=== PATIENT | male | born 1965 | race Caucasian/White ===

== ENCOUNTER 2017-03-16 08:14 | Inpatient (IN) | payer MEDICARE, MEDICAID ==
[2017-03-13 11:11] VITALS: BMI 35.2
[2017-03-16 10:51] LABS: Hemoglobin 14.1 g/dL (14.0-18.0); Mean Corpuscular HGB CONC 33.7 g/dL (32.0-36.0); Mean Corpuscular Hemoglobin 32.4 pg (27.0-31.0); Mean Platelet Volume 8.6 fL (7.4-10.4); Platelet Count 237 thou/uL (130-400); RBC Distribution Width 11.5 % (11.5-14.5); Red Blood Cell (RBC) Count 4.37 mill/uL (4.70-6.10); White Blood Cell (WBC) Count 10.2 thou/uL (4.8-10.8)
[2017-03-16 11:10] LABS: Anion Gap 12 mmol/L (10-20); BUN (Urea Nitrogen) 14 mg/dL (8.4-25.7); Calc. Creatinine Clearance 184 mL/min (70-130); Calcium 9.4 mg/dL (7.8-10.44); Carbon Dioxide 25 mmol/L (22-29); Chloride 108 mmol/L (98-107); Estimated GFR-MDRD Greater than 90; Glucose 93 mg/dL (70-105); Potassium 3.9 mmol/L (3.5-5.1); Sodium 141 mmol/L (136-145)
[2017-03-16] MEDS ORDERED: Levofloxacin 500 mg/D5W 100 ml Premix Bag ONE (11:11)
[2017-03-16] MEDS ORDERED: Clindamycin/D5W 900 mg/50 ml Premix Bag ONE (11:12)
[2017-03-16] MEDS ORDERED: Sodium Chloride 0.9% 0 ML ONE (11:17)
[2017-03-16] MEDS ORDERED: Bacitracin Zinc Ointment 30 gm TUBE ONE ×2 (11:17→11:19)
[2017-03-16] MEDS ORDERED: Thrombin 5000 UNITS/5 ML VIAL ONE (11:17)
[2017-03-16] MEDS ORDERED: Fentanyl 250 MCG/5 ML VIAL ONE (11:19)
[2017-03-16] MEDS ORDERED: Sodium Chloride 0.9% 10 ML ONE (12:37)
[2017-03-16] MEDS ORDERED: ePHEDrine/0.9% NaCl/PF SYRINGE 50 mg/10 ml ONE (13:44)
[2017-03-16] MEDS ORDERED: PHENYLEPHRINE-NS 100 MCG/ML 10 ML SYRINGE ONE (13:44)
[2017-03-16] MEDS ORDERED: Propofol 200 MG/20 ML VIAL ONE (13:44)
[2017-03-16] MEDS ORDERED: Lidocaine 1% PF 5 ML VIAL ONE (13:44)
[2017-03-16] MEDS ORDERED: Glycopyrrolate 0.2 MG/ML 5 ML SYRINGE ONE (13:44)
[2017-03-16] MEDS ORDERED: Dexamethasone 20 MG/5 ML VIAL ONE (13:44)
--- NOTE | 2017-03-16 14:04 | OP ---
DATE OF PROCEDURE: 03/16/2017 SURGEON: Will Infante M.D. TECHNICAL SERVICES ASSISTANT: Taylor Patricia PROCEDURES: Exploration of spinal fusion C5-C7, attempted removal of hardware C6-7, attempted interb luis daniel arthrodesis C5-6. Cervical laminectomy, C5-6 posterolateral arthrodesis, lateral mass screw instrumentation, deminerali zed bone matrix, and local morselized autograft C5-6. PROCEDURE IN DETAIL: The patient was brought into the operating room and intubated. He was position ed supine with the head in modest extension on a gel-filled donut. The previous incision was reopene d and the prior hardware was identified. We attempted to remove the C6-7 plate and removed it to C6 screws with some difficulty, but the C7 screws were impossible to remove. The right C7 screw head wa s completely debrided in multiple fragments, but the left C7 head could not be removed at all and ult imately we had to abort efforts to remove the C6-7 plate. Fusion surrounding C6-7 did seem to be bhumika id. At C5-6, we identified the anterior interbody arthrodesis. We made extensive efforts to expose enough C6 vertebral body to attempt anterior plating, but ultimately this was unsuccessful. The woun d was then extensively irrigated, immaculate hemostasis was secured, and the wound was closed in sarah omic layers over a drain. Next, the patient was rolled into the prone position on gel-filled chest r olls with the head fixed in neutral position in the abida truck loader overhead crane. The C5-6 region was exposed bilaterally and our level confirmed by x-ray. We performed a modest C5-6 interlaminar laminectomy fo r the purpose of decompression. We next placed lateral mass screws at C5 and C6 bilaterally using la terloretta fluoroscopic guidance. A alejandra was secured between the screws, connected by nuts were final tigh tened. The wound was then extensively irrigated, immaculate hemostasis was secured. A combination o f demineralized bone matrix and local morselized autograft was laid over the laminar and posterolater al surfaces for the purpose of arthrodesis. Vancomycin powder was applied and the wound was then darlene sed in anatomic layers.
[2017-03-16] MEDS ORDERED: Promethazine HCl 25 MG/ML VIAL IM PRN ×2 (14:18→15:49)
[2017-03-16] MEDS ORDERED: Promethazine HCl 25 MG/ML VIAL SLOW IVP PRN (14:18)
[2017-03-16] MEDS ORDERED: Ondansetron HCl/PF 4 MG/2 ML Vial IVP PRN ×2 (14:18→15:49)
[2017-03-16] MEDS ORDERED: Meperidine HCl/PF 25 MG/ML VIAL SLOW IVP PRN (14:18)
[2017-03-16] MEDS ORDERED: Meperidine HCl/PF 25 MG/ML VIAL ONE (14:20)
[2017-03-16] MEDS ORDERED: Fentanyl 100 MCG/2 ML VIAL ONE ×3 (14:25→15:18)
[2017-03-16] MEDS ORDERED: Milk Of Magnesia 30 ML UDCUP PO PRN (15:49)
[2017-03-16] MEDS ORDERED: traMADol HCl 50 MG TAB PO PRN ×2 (15:49)
[2017-03-16] MEDS ORDERED: diphenhydrAMINE 25 MG CAP PO PRN (15:49)
[2017-03-16] MEDS ORDERED: Promethazine HCl 12.5 MG SUPP PR PRN (15:49)
[2017-03-16] MEDS ORDERED: Mag-Al 1200 mg/1200 mg/30 ML UDCUP PO PRN (15:49)
[2017-03-16] MEDS ORDERED: HYDROcodone/Acetaminophen 10/325 mg Tablet PO PRN (15:49)
[2017-03-16] MEDS ORDERED: diphenhydrAMINE 50 MG/ML VIAL IVP PRN (15:49)
[2017-03-16] MEDS ORDERED: Promethazine 25 MG TAB PO PRN (15:49)
[2017-03-16] MEDS ORDERED: LEVALBUTEROL TARTRATE INH PRN (16:07)
[2017-03-16] MEDS ORDERED: Nitroglycerin 0.4 MG TAB (25 Tab Bottle) SL PRN (16:08)
[2017-03-16] MEDS: HYDROcodone/Acetaminophen 10/325 mg Tablet PO PRN ×2 (17:45→23:39)
[2017-03-16] MEDS: metFORMIN 500 MG TAB PO SCH (17:48)
[2017-03-16] MEDS: Sodium Chloride 0.9% 1,000 ML IV SCH (17:51)
--- NOTE | 2017-03-16 17:53 | EKG ---
Test Reason : PREOP Blood Pressure : / mmHG Vent. Rate : 067 BPM Atrial Rate : 067 BPM P-R Int : 160 ms QRS Dur : 096 ms QT Int : 396 ms P-R-T Axes : 062 042 041 degrees QTc Int : 418 ms Normal sinus rhythm Normal ECG No previous ECGs available Confirmed by ERIKA HOLLIS, DR. Marcum ([id number]) on 03/16/2017 5:53:01 PM Referred By: DEBORAH Confirmed By:DR. Jossue JAMES MD
[2017-03-16] MEDS: Mometasone/Formoterol 120 PUFF INHALER INH SCH (19:28)
[2017-03-16] MEDS: tiZANidine HCl 4 MG TAB PO PRN (21:09)
[2017-03-16] MEDS: Clindamycin/D5W 900 MG in Premix Bag 1 BAG IVPB SCH (21:09)
--- NOTE | 2017-03-16 21:46 | PDOC.PN ---
- Subjective Encounter Start Date: 03/16/17 Encounter Start Time: 21:40 Subjective: Consult for med mgmt. Hx of HTN, DM, COPD, CAD. Reviewed all hx, labs -: radiographs and EKG. s/p cervical diskectomy with hardware removal. - Objective Resuscitation Status: Resuscitation Status FULL:Full Resuscitation MAR Reviewed: Yes Vital Signs & Weight: Vital Signs (12 hours) Temp Pulse Resp BP Pulse Ox 03/16/17 19:28 95 18 95 03/16/17 18:25 97.9 F 98 18 95 03/16/17 16:39 97.9 F 98 18 124/82 95 Weight Weight 245 lb I&O: 03/15/17 03/16/17 03/17/17 06:59 06:59 06:59 Intake Total 500 Output Total 0 Balance 500 Result Diagrams: 03/16/17 10:35 03/16/17 10:35 EKG Reviewed by me: Yes (NSR in 60's, no acute ST-T wave changes) Phys Exam - Physical Examination Constitutional: NAD HEENT: PERRLA, oral pharynx no lesions Neck: no JVD, supple Respiratory: no wheezing, clear to auscultation bilateral Cardiovascular: RRR Gastrointestinal: soft, non-tender, no distention, positive bowel sounds Musculoskeletal: no edema, pulses present Neurological: normal sensation, moves all 4 limbs Psychiatric: A&O x 3 Skin: normal turgor, cap refill <2 seconds Dx/Plan (1) HTN (hypertension) Code(s): I10 - ESSENTIAL (PRIMARY) HYPERTENSION Status: Chronic Qualifiers: Hypertension type: essential hypertension Qualified Code(s): I10 - Essential (primary) hypertension Comment: Continue Norvasc 10mg daily and Losartan 100mg daily (2) DM II (diabetes mellitus, type II), controlled Code(s): E11.9 - TYPE 2 DIABETES MELLITUS WITHOUT COMPLICATIONS Status: Chronic Comment: Continue Metformin 500mg BID, add ISS for reflexive coverage , accuchecks ACHS (3) COPD (chronic obstructive pulmonary disease) Status: Chronic Comment: No exacerbation, continue Advair and Xopenex (4) CAD (coronary artery disease) Code(s): I25.10 - ATHSCL HEART DISEASE OF [place] CORONARY ARTERY W/O ANG PCTRS Status: Chronic Comment: Stable, continue ASA, Lipitor (5) Status post cervical discectomy Code(s): Z98.890 - OTHER SPECIFIED POSTPROCEDURAL STATES Status: Acute Comment: Mgmt per primary service - Plan continue antibiotics, PT/OT, DVT proph w/SCDs Stable currently -: Continue ASA and Lipitor -: Continue Norvasc and Losartan -: Pain control as indicated -: PT for mobilization * Thank you for the consult. Will continue to follow with primary service.
[2017-03-16] MEDS ORDERED: Dextrose 50% Abboject 50 ML SYRINGE SLOW IVP PRN (21:47)
[2017-03-16] MEDS ORDERED: HumaLOG 300 UNITS/3 ML VIAL SC PRN ×2 (21:47)
[2017-03-16] MEDS ORDERED: Dextrose 5% in Water 1,000 ML IV PRN (21:47)
[2017-03-17] MEDS: HYDROcodone/Acetaminophen 10/325 mg Tablet PO PRN ×5 (04:45→21:47)
[2017-03-17] MEDS: tiZANidine HCl 4 MG TAB PO PRN ×3 (04:46→17:43)
[2017-03-17] MEDS: Clindamycin/D5W 900 MG in Premix Bag 1 BAG IVPB SCH ×3 (04:47→21:46)
[2017-03-17] MEDS: Morphine 4 MG/ML Carpuject SLOW IVP PRN ×4 (06:27→21:48)
[2017-03-17] MEDS: Sodium Chloride 0.9% 1,000 ML IV SCH ×2 (07:09→18:21)
[2017-03-17] MEDS ORDERED: POTASSIUM 99MG PO SCH (08:00)
[2017-03-17] MEDS: Mometasone/Formoterol 120 PUFF INHALER INH SCH ×2 (08:11→19:16)
[2017-03-17] MEDS: Losartan 25 MG TAB PO SCH (08:31)
[2017-03-17] MEDS: Multivit, Therapeutic 1 TAB PO SCH (08:31)
[2017-03-17] MEDS: metFORMIN 500 MG TAB PO SCH ×2 (08:32→17:49)
[2017-03-17] MEDS: Amlodipine 10 MG TAB PO SCH (08:32)
[2017-03-17] MEDS: Atorvastatin Calcium 40 MG TAB PO SCH (08:32)
[2017-03-17] MEDS ORDERED: Dexamethasone 4 mg/ml Vial SLOW IVP SCH (15:15)
[2017-03-17] MEDS ORDERED: Dexamethasone 10 MG/ML VIAL SLOW IVP SCH (15:15)
--- NOTE | 2017-03-17 16:27 | PDOC.PN ---
- Subjective Encounter Start Date: 03/17/17 Encounter Start Time: 16:26 Patient seen and examined. No new complaints. No overnight events - Objective Resuscitation Status: Resuscitation Status FULL:Full Resuscitation MAR Reviewed: Yes Vital Signs & Weight: Vital Signs (12 hours) Temp Pulse Resp BP BP Pulse Ox Pulse Ox 03/17/17 11:50 98.0 F 83 16 105/67 94 L 03/17/17 11:14 94 L 03/17/17 08:32 91 130/69 03/17/17 08:11 91 16 97 03/17/17 07:50 97.8 F 80 16 130/69 93 L 03/17/17 04:41 98.3 F 83 20 133/81 93 L Pulse Ox 03/17/17 11:50 03/17/17 11:14 92 L 03/17/17 08:32 03/17/17 08:11 03/17/17 07:50 03/17/17 04:41 Weight Weight 245 lb I&O: 03/16/17 03/17/17 03/18/17 06:59 06:59 06:59 Intake Total 500 900 Output Total 0 800 Balance 500 100 Result Diagrams: 03/16/17 10:35 03/16/17 10:35 Additional Labs: Accuchecks 03/17/17 03/17/17 03/17/17 15:59 11:56 06:30 POC Glucose 110 104 110 03/16/17 23:34 POC Glucose 162 H Phys Exam - Physical Examination Constitutional: NAD HEENT: PERRLA Neck: no nodes Respiratory: no rales Cardiovascular: no significant murmur Gastrointestinal: non-tender Musculoskeletal: pulses present Neurological: normal sensation Psychiatric: A&O x 3 Dx/Plan (1) Status post cervical discectomy Code(s): Z98.890 - OTHER SPECIFIED POSTPROCEDURAL STATES Status: Acute Comment: Mgmt per primary service (2) CAD (coronary artery disease) Code(s): I25.10 - ATHSCL HEART DISEASE OF [place] CORONARY ARTERY W/O ANG PCTRS Status: Chronic Comment: Stable, continue ASA, Lipitor (3) COPD (chronic obstructive pulmonary disease) Status: Chronic Comment: No exacerbation, continue Advair and Xopenex (4) DM II (diabetes mellitus, type II), controlled Code(s): E11.9 - TYPE 2 DIABETES MELLITUS WITHOUT COMPLICATIONS Status: Chronic Comment: Continue Metformin 500mg BID, add ISS for reflexive coverage , accuchecks ACHS (5) HTN (hypertension) Code(s): I10 - ESSENTIAL (PRIMARY) HYPERTENSION Status: Chronic Qualifiers: Hypertension type: essential hypertension Qualified Code(s): I10 - Essential (primary) hypertension Comment: Continue Norvasc 10mg daily and Losartan 100mg daily - Plan continue antibiotics, PT/OT, DVT proph w/SCDs Stable currently -: Continue ASA and Lipitor -: Continue Norvasc and Losartan -: Pain control as indicated -: PT for mobilization
[2017-03-18] MEDS: tiZANidine HCl 4 MG TAB PO PRN ×2 (01:10→09:15)
[2017-03-18] MEDS: HYDROcodone/Acetaminophen 10/325 mg Tablet PO PRN ×3 (02:04→13:13)
[2017-03-18] MEDS: Clindamycin/D5W 900 MG in Premix Bag 1 BAG IVPB SCH ×2 (04:56→11:28)
[2017-03-18] MEDS: Mometasone/Formoterol 120 PUFF INHALER INH SCH (06:59)
[2017-03-18] MEDS: Sodium Chloride 0.9% 1,000 ML IV SCH (08:40)
[2017-03-18] MEDS: Amlodipine 10 MG TAB PO SCH (09:10)
[2017-03-18] MEDS: Losartan 25 MG TAB PO SCH (09:10)
[2017-03-18] MEDS: Multivit, Therapeutic 1 TAB PO SCH (09:10)
[2017-03-18] MEDS: metFORMIN 500 MG TAB PO SCH (09:10)
[2017-03-18] MEDS: Atorvastatin Calcium 40 MG TAB PO SCH (09:10)
[2017-03-18 09:41] LABS: Troponin I Less than 0.010 ng/mL (< 0.028)
[2017-03-18 12:20] VITALS: BP 113/68; TEMP 97.9
--- NOTE | 2017-03-18 13:09 | PDOC.PN ---
- Subjective Encounter Start Date: 03/18/17 Encounter Start Time: 11:00 Pt had an episode of CP, achiness earlier associated with a surgicla pain flare. Biomarker snad EKG unchanged. Pt cleared for discharge by Neurosurg. No F/C,no N/V/d/C, no SOB, no diaphoresis. 10 point ROS performed and neg for all systems except as per hPI - Objective Resuscitation Status: Resuscitation Status FULL:Full Resuscitation MAR Reviewed: Yes Vital Signs & Weight: Vital Signs (12 hours) Temp Pulse Resp BP Pulse Ox 03/18/17 11:00 97.9 F 79 14 113/68 03/18/17 08:00 98 F 83 14 03/18/17 07:22 98 F 83 14 119/73 96 03/18/17 04:00 98.2 F 73 20 114/65 97 Weight Weight 245 lb I&O: 03/17/17 03/18/17 03/19/17 06:59 06:59 06:59 Intake Total 500 5220 Output Total 0 2000 Balance 500 3220 Result Diagrams: 03/16/17 10:35 03/16/17 10:35 Additional Labs: Accuchecks 03/18/17 03/18/17 03/17/17 11:02 06:07 20:57 POC Glucose 116 H 132 H 138 H 03/17/17 15:59 POC Glucose 110 Radiology Reviewed by me: Yes EKG Reviewed by me: Yes Phys Exam - Physical Examination Constitutional: NAD HEENT: PERRLA, moist MMs, sclera anicteric, oral pharynx no lesions Neck: no nodes, no JVD, supple, full ROM dressing C/D/I, no bleedthrough Respiratory: no wheezing, no rales, no rhonchi, clear to auscultation bilateral Cardiovascular: RRR, no significant murmur, no rub Gastrointestinal: soft, non-tender Musculoskeletal: no edema, pulses present Neurological: non-focal, normal sensation, moves all 4 limbs Lymphatic: no nodes Psychiatric: normal affect, A&O x 3 Skin: no rash, normal turgor, cap refill <2 seconds Dx/Plan (1) Status post cervical discectomy Code(s): Z98.890 - OTHER SPECIFIED POSTPROCEDURAL STATES Status: Acute Comment: Mgmt per primary service (2) CAD (coronary artery disease) Code(s): I25.10 - ATHSCL HEART DISEASE OF [place] CORONARY ARTERY W/O ANG PCTRS Status: Chronic Comment: Stable, continue ASA, Lipitor (3) COPD (chronic obstructive pulmonary disease) Status: Chronic Comment: No exacerbation, continue Advair and Xopenex (4) DM II (diabetes mellitus, type II), controlled Code(s): E11.9 - TYPE 2 DIABETES MELLITUS WITHOUT COMPLICATIONS Status: Chronic Comment: Continue Metformin 500mg BID, add ISS for reflexive coverage , accuchecks ACHS (5) HTN (hypertension) Code(s): I10 - ESSENTIAL (PRIMARY) HYPERTENSION Status: Chronic Qualifiers: Hypertension type: essential hypertension Qualified Code(s): I10 - Essential (primary) hypertension Comment: Continue Norvasc 10mg daily and Losartan 100mg daily - Plan * . Ok to discharge, will sign off in anticipation of discharge
--- NOTE | 2017-03-19 00:53 | EKG ---
Test Reason : C/O CHEST PAIN Blood Pressure : / mmHG Vent. Rate : 080 BPM Atrial Rate : 080 BPM P-R Int : 152 ms QRS Dur : 096 ms QT Int : 354 ms P-R-T Axes : 053 027 023 degrees QTc Int : 408 ms Normal sinus rhythm Normal ECG When compared with ECG of 16-MAR-2017 10:41, No significant change was found Confirmed by ERIKA HOLLIS, DR. Marcum ([id number]) on 03/19/2017 12:53:08 AM Referred By: MEME Confirmed By:DR. Jossue JAMES MD
== END 2017-03-18 13:39 | disposition home or self-care (01) | DRG 473 ==
LOC: SURG A 08:14
PROVIDERS: ADMIT Neurological Surgery; ATTEND Neurological Surgery
PROC: 0RG1071 Fusion of Cervical Vertebral Joint with Autologous Tissue Substitute, Posterior Approach, Posterior Column, Open Approach (ICD-10-PCS; principal; 2017-03-16)
PROC: 00NW0ZZ Release Cervical Spinal Cord, Open Approach (ICD-10-PCS; 2017-03-16)
DX: M48.02 Spinal stenosis, cervical region (principal); E11.9 Type 2 diabetes mellitus without complications; M54.12 Radiculopathy, cervical region; I25.10 Atherosclerotic heart disease of native coronary artery without angina pectoris; J44.9 Chronic obstructive pulmonary disease, unspecified; I10 Essential (primary) hypertension; E78.5 Hyperlipidemia, unspecified; Z88.0 Allergy status to penicillin; Z88.8 Allergy status to other drugs, medicaments and biological substances
CPT/HCPCS: 36415; 36416; 76001; 80048; 82553; 84484; 85027; 93005; 93010; A4216; C1713; C1768; G8978-GP-CL; G8979-GP-CJ; J1100; J1956; J2001; J2175; J2270; J2405; J2704; J3010; J3370; J3490

== ENCOUNTER 2017-04-02 15:05 | Outpatient (CLI) | payer MEDICARE, MEDICAID ==
--- NOTE | 2017-04-02 15:51 | RAD ---
5 VIEWS CERVICAL SPINE: Date: 04/02/17 INDICATION: Neck pain, follow-up surgery. COMPARISON: None. FINDINGS: There is posterolateral spinal instrumentation spanning C5 and C6. There is an intervertebral cage at C5-6. There is an ACDF plate seen at C6 and C7. Instrumentation projects in the expected position. L [place] apices are clear. Spinal alignment appears within normal limits. There is slight kyphosis of the cervical spine which may be related to positioning. Multilevel disc degenerative disease is similar. Lateral masses are symmetric. IMPRESSION: Postoperative cervical spine as above. POS: [facility]
== END 2017-04-02 15:06 | disposition home or self-care (01) ==
LOC: TBSIIMAG 15:05
PROVIDERS: ATTEND Physician Assistant
DX: M54.2 Cervicalgia (principal); Z98.1 Arthrodesis status
CPT/HCPCS: 72040